=== PATIENT | male | born 1995 | race Caucasian/White ===

== ENCOUNTER 2019-10-06 14:37 | Emergency (ER) | payer OTHER ==
[~2019-10-06] VITALS: Ht 177.8 cm; Wt 62.3 kg
[2019-10-06 16:08] LABS: BASOPHILS % (AUTO) 0.2 % (0-1); EOSINOPHILS % (AUTO) 0.6 % (0-6); HEMATOCRIT 47.7 % (42.0-52.0); HEMOGLOBIN 16.6 g/dl (14.0-17.9); LYMPHOCYTES # (AUTO) 1.2 X10'3 (1.1-4.8); LYMPHOCYTES % (AUTO) 16.7 % (21-51); MEAN CORPUSCULAR HEMOGLOBIN 32.1 PG (27.0-31.0); MEAN CORPUSCULAR HGB CONC 34.8 g/dL (33.0-36.5); MEAN CORPUSCULAR VOLUME 92.2 FL (78-98); MEAN PLATELET VOLUME 8.8 FL (7.4-10.4); MONOCYTES # (AUTO) 0.7 X10'3 (0-0.9); MONOCYTES % (AUTO) 9.3 % (2-12); NEUTROPHILS # (AUTO) 5.3 X10'3 (1.8-7.7); NEUTROPHILS % (AUTO) 73.2 % (42-75); PLATELET COUNT 269 X10'3 (140-440); RED BLOOD COUNT 5.18 X10'6 (4.70-6.10); RED CELL DISTRIBUTION WIDTH 12.7 % (11.5-14.5); WHITE BLOOD COUNT 7.3 X10'3 (4.5-11.0)
[2019-10-06 16:19] LABS: ALANINE AMINOTRANSFERASE 19 U/L (12-78); ALBUMIN 4.6 G/DL (3.4-5.0); ALBUMIN/GLOBULIN RATIO 1.4 (1.1-1.5); ALKALINE PHOSPHATASE 60 IU/L (46-116); ANION GAP 5 (8-16); ASPARTATE AMINO TRANSFERASE 23 U/L (10-37); BILIRUBIN,TOTAL 2.2 MG/DL (0.1-1.0); BLOOD UREA NITROGEN 13 MG/DL (7-18); BUN/CREATININE RATIO 16.7 (5.4-32.0); CALCIUM 9.4 MG/DL (8.5-10.1); CHLORIDE 103 MMOL/L (99-107); CREATININE 0.78 MG/DL (0.60-1.10); GLUCOSE 109 MG/DL (70-104); POTASSIUM 3.5 MMOL/L (3.5-5.1); SODIUM 138 MMOL/L (135-145); TOTAL CARBON DIOXIDE 29.6 MMOL/L (24-32); eGFR > 90 ML/MIN
[2019-10-06] MEDS ORDERED: normal saline 1000ML IV soln IV ONE (16:20)
[2019-10-06] MEDS ORDERED: magnesium 2GM in 50ml NS 50 ML IV ONE (16:30)
[2019-10-06] MEDS ORDERED: acetaminophen 325mg tablet PO ONE (16:35)
[2019-10-06 17:03] LABS: CREATINE KINASE 125 U/L (39-308); ETHANOL < 0.010 GM/DL (0.0-0.010)
[2019-10-06 17:51] VITALS: BP 118/58
== END 2019-10-06 18:34 | disposition home or self-care (01) ==
LOC: ER 14:38
DX: E86.0 Dehydration (principal); R55 Syncope and collapse; R51 Headache
CPT/HCPCS: 36415; 70450; 80053; 80320; 82550; 85025; 93005; 96365; 99285; J3475; J7030

== ENCOUNTER 2022-01-09 14:10 | Emergency (ER) | payer MEDICAID ==
[~2022-01-09] VITALS: Ht 175.3 cm; Wt 63.6 kg
[2022-01-09 16:35] LABS: D-DIMER < 0.19 MG/L FEU (0-0.50)
[2022-01-09 16:51] VITALS: BP 106/79
== END 2022-01-09 16:54 | disposition home or self-care (01) ==
LOC: ER 14:10
DX: Z13.89 Encounter for screening for other disorder (principal); R07.89 Other chest pain
CPT/HCPCS: 36415; 71046; 85379; 93005; 99285